=== PATIENT | female | born 1995 | race Caucasian/White ===

== ENCOUNTER 2017-07-10 06:21 | Emergency (ER) | payer MEDICAID, OTHER ==
[~2017-07-10] VITALS: Ht 144.8 cm; Wt 43.1 kg
[2017-07-10 07:05] VITALS: BP 138/78
== END 2017-07-10 08:31 | disposition home or self-care (01) ==
LOC: ER 06:21 → EDBD 06:21 → ER 08:31
DX: S61.012A Laceration without foreign body of left thumb without damage to nail, initial encounter (principal); S00.81XA Abrasion of other part of head, initial encounter; F17.210 Nicotine dependence, cigarettes, uncomplicated; V43.52XA Car driver injured in collision with other type car in traffic accident, initial encounter; Y93.89 Activity, other specified; Y92.89 Other specified places as the place of occurrence of the external cause; Y99.8 Other external cause status
CPT/HCPCS: 12002

== ENCOUNTER 2023-09-28 19:10 | Inpatient (IN) | payer MEDICAID ==
[~2023-09-28] VITALS: Ht 160 cm; Wt 46.8 kg
[2023-09-28 19:42] VITALS: PULSE 103; RESP 22; O2SAT 97
[2023-09-28 20:05] LABS: Basophils # (auto) 0 10 ^3/uL (0-0.2); Basophils % (auto) 0.4 % (0.0-2.0); Eosinophils # (auto) 0.1 10 ^3/uL (0-0.8); Eosinophils % (auto) 1.1 % (0.0-7.0); Hematocrit 44.8 % (36.0-46.0); Lymphocytes # (auto) 1.3 10 ^3/uL (0.4-5.4); Lymphocytes % (auto) 19.7 % (10.0-50.0); Mean Corpuscular Hemoglobin 32.4 pg (28.0-32.0); Mean Corpuscular Hgb Conc. 33.6 g/dL (32.0-36.0); Mean Corpuscular Volume 96.6 fL (80.0-100.0); Monocytes # (auto) 0.7 10 ^3/uL (0-1.3); Monocytes % (auto) 11.1 % (0.0-12.0); Neutrophils # (auto) 4.3 10 ^3/uL (1.6-8.6); Neutrophils % (auto) 67.7 % (37.0-80.0); Nucleated Red Blood Cells % 0.1 %; Red Blood Cells 4.64 10^6/uL (4.0-5.20); White Blood Cell 6.4 10^3/uL (4.4-10.8)
[2023-09-28 20:22] LABS: Alanine Aminotransferase 137 U/L (7-40); Albumin 4.4 g/dL (3.2-4.8); Alkaline Phosphatase 153 U/L (46-116); Anion Gap 9 (5-15); Aspartate Aminotransferase 243 U/L (13-40); BUN/Creatinine Ratio 11.1 (10.0-20.0); Bilirubin, Total 0.8 mg/dL (0.2-1.0); Blood Urea Nitrogen 7 mg/dL (9-23); Calcium 9.9 mg/dL (8.5-10.1); Carbon Dioxide 24 mmol/L (20-30); Chloride 101 mmol/L (98-107); Glucose 102 mg/dL (74-106); Magnesium 1.3 mg/dL (1.6-2.6); Potassium 3.3 mmol/L (3.5-5.1); Sodium 134 mmol/L (136-145); Total Protein 7.4 g/dL (5.7-8.2)
[2023-09-28] MEDS: levETIRAcetam 1000 mg/100ml 100 ML IV ONE (20:36)
[2023-09-28] MEDS: POTASSIUM EFFERVESENT TAB 25 MEQ PO ONE (20:59)
[2023-09-28] MEDS: MAGNESIUM SULFATE 1GM/100ML 100 ML IV SCH (20:59)
[2023-09-28] MEDS ORDERED: ONDANSETRON HCL 4 MG/2 ML VIAL IV PRN (21:30)
[2023-09-28 22:13] LABS: Urine Bacteria None Seen /hpf (None Seen)
[2023-09-28 22:28] LABS: Urine Blood Negative /uL (Negative); Urine Clarity Clear (Clear); Urine Color Light-Yellow (Yellow); Urine Hyaline Cast FEW /lpf (0 - 2); Urine Mucus FEW (None Seen); Urine Protein, UAD Negative (Negative); Urine Specific Gravity 1.008 (1.001-1.035); Urine Urobilinogen Normal (Negative); Urine WBC <1 /hpf (0 - 5); Urine pH 6.5 (5.0-9.0)
[2023-09-28 22:35] LABS: Amphetamine Screen, Urine Neg (NEGATIVE); Barbiturate Scree,Urine Neg (NEGATIVE); Benzodiazephine Screen, Urine Neg (NEGATIVE); Cocaine Screen, Urine Neg (NEGATIVE)
[2023-09-28 22:36] LABS: Cannabinoid Screen, Urine Neg (NEGATIVE); Opiate Scree,Urine Neg (NEGATIVE); Phencyclidine Screen, Urine Neg (NEGATIVE)
[2023-09-28] MEDS: SODIUM CHLORIDE 0.9% 1,000 ML IV SCH (23:05)
[2023-09-29] VITALS (9 sets, daily range): BP systolic 113–122; BP diastolic 77–85; PULSE 66–90; RESP 15–19; TEMP 98–98.3; O2SAT 93–100
[2023-09-29 04:07] LABS: Basophils # (auto) 0 10 ^3/uL (0-0.2); Basophils % (auto) 0.5 % (0.0-2.0); Eosinophils # (auto) 0.2 10 ^3/uL (0-0.8); Eosinophils % (auto) 3.1 % (0.0-7.0); Hematocrit 42.2 % (36.0-46.0); Hemoglobin 14.3 g/dL (12.2-16.2); Lymphocytes # (auto) 2.5 10 ^3/uL (0.4-5.4); Lymphocytes % (auto) 35.3 % (10.0-50.0); Mean Corpuscular Hemoglobin 32.7 pg (28.0-32.0); Mean Corpuscular Hgb Conc. 33.9 g/dL (32.0-36.0); Mean Corpuscular Volume 96.6 fL (80.0-100.0); Monocytes # (auto) 0.7 10 ^3/uL (0-1.3); Monocytes % (auto) 9.9 % (0.0-12.0); Neutrophils # (auto) 3.6 10 ^3/uL (1.6-8.6); Neutrophils % (auto) 51.2 % (37.0-80.0); Nucleated Red Blood Cells % 0.2 %; Red Blood Cells 4.37 10^6/uL (4.0-5.20); Red Cell Distribution Width 16.1 % (11.8-14.3); White Blood Cell 7.1 10^3/uL (4.4-10.8)
[2023-09-29 04:24] LABS: Alanine Aminotransferase 122 U/L (7-40); Alkaline Phosphatase 141 U/L (46-116); Anion Gap 8 (5-15); Aspartate Aminotransferase 226 U/L (13-40); Calcium 9.1 mg/dL (8.5-10.1); Carbon Dioxide 24 mmol/L (20-30); Chloride 103 mmol/L (98-107); Glucose 93 mg/dL (74-106); Potassium 3.5 mmol/L (3.5-5.1); Sodium 135 mmol/L (136-145)
[2023-09-29 04:32] LABS: BUN/Creatinine Ratio 7.8 (10.0-20.0); Blood Urea Nitrogen < 5 mg/dL (9-23); Magnesium 2.8 mg/dL (1.6-2.6)
[2023-09-29 09:29] LABS: Hepatitis B Surface Antigen Negative (Negative)
[2023-09-29] MEDS ORDERED: LORazepam 2MG/ML-1ML VIAL IV PRN ×2 (09:45)
[2023-09-29 09:50] LABS: Hepatitis A Ab IgM Negative; Hepatitis B Core IgM Negative
[2023-09-29 09:51] LABS: Hepatitis C Antibody Negative (Negative)
[2023-09-29] MEDS ORDERED: levETIRAcetam 500 mg/100ml 100 ML IV SCH (10:00)
[2023-09-29] MEDS: NICOTINE 7MG/24HR TOPICAL PATCH TD SCH (10:00)
[2023-09-30] VITALS (7 sets, daily range): BP systolic 112–132; BP diastolic 76–92; PULSE 60–86; RESP 16–19; TEMP 97.6–98.6; O2SAT 96–100
[2023-10-01 01:00] VITALS: BP 123/76; PULSE 65; RESP 17; TEMP 98.1; O2SAT 100
[2023-10-01 05:00] VITALS: BP 101/60; PULSE 58; RESP 17; TEMP 98; O2SAT 100
[2023-10-01 08:00] VITALS: BP 101/55; PULSE 59; PULSE 60; RESP 17; TEMP 98.3; O2SAT 93
[2023-10-01 08:13] VITALS: BP 101/55; PULSE 60; RESP 17; TEMP 98.3; O2SAT 93
[2023-10-01 11:55] VITALS: BP 145/85; PULSE 81; RESP 18; TEMP 97.6; O2SAT 98
[2023-10-01 12:02] VITALS: BP 101/55; PULSE 60; RESP 17; TEMP 98.3; O2SAT 93
== END 2023-10-01 12:27 | disposition home or self-care (01) | DRG 425 ==
LOC: ER 19:10 → EDBD 19:10 → EDUNIT# 19:10 → TELE 21:56 → TELE-CENTR 09-29 10:51
PROVIDERS: ADMIT Registered Nurse; ATTEND Internal Medicine
DX: E87.6 Hypokalemia (principal); D69.6 Thrombocytopenia, unspecified; K70.30 Alcoholic cirrhosis of liver without ascites; E83.42 Hypomagnesemia; S00.03XA Contusion of scalp, initial encounter; F17.210 Nicotine dependence, cigarettes, uncomplicated; R79.89 Other specified abnormal findings of blood chemistry; W18.39XA Other fall on same level, initial encounter; Y93.89 Activity, other specified; Y92.89 Other specified places as the place of occurrence of the external cause; Y99.8 Other external cause status
CPT/HCPCS: 36415; 70450; 70551; 76705; 80053; 80074; 80307; 80320; 81001; 81025; 83735; 84443; 84702; 85025; 93005; 93886; 95819; G0378